=== PATIENT | female | born 1945 | race Caucasian/White ===

== ENCOUNTER 2018-03-14 17:16 | Observation (INO) ==
[2018-03-14 18:24] LABS: Basophils % 0.2 %; Eosinophils # 0.1 K/mcL (0.0-0.6); Eosinophils % 0.4 %; Hematocrit 36.8 % (35.3-44.9); Hemoglobin 11.9 g/dL (11.5-15.4); Immature Granulocytes % 0.3 % (0-4); Lymphocytes # 0.9 K/mcL (0.6-4.6); Mean Corpuscular HGB Conc 32.3 g/dL (31.6-35.5); Mean Corpuscular Hemoglobin 29.2 pg (28.0-33.3); Mean Corpuscular Volume 90.4 fL (83.0-100.0); Mean Platelet Volume 10.7 fL (9.4-12.4); Monocytes # 1.2 K/mcL (0.0-1.3); Monocytes % 9.2 %; Neutrophils # 10.9 K/mcL (1.6-8.9); Platelet Count 203 K/mcL (140-400); Red Blood Count 4.07 M/mcL (3.82-4.97); Red Cell Distribution Width 13.8 % (11.5-14.5); Segmented Neutrophils % 82.9 %
[2018-03-14 18:29] LABS: INR 1.1; Prothrombin Time 12.9 Seconds (9.4-12.1)
[2018-03-14 18:31] LABS: Activated Partial Thrombo Time 40.1 Seconds (26.0-36.0)
--- NOTE | 2018-03-14 18:31 | Emergency Department Note ---
Disposition Clinical Impression: Chest pain Qualifiers: Chest pain type: unspecified Qualified Code(s): R07.9 - Chest pain, unspecified Disposition: Admitted As Inpatient Condition: Good Referrals: Malcom Busby MD [Primary Care Provider] - Forms: ED Satisfaction Letter Time of Disposition: 19:44 General Adult HPI - General Chief complaint: ED Chest Pain Stated complaint: Chest Pain Time Seen by Provider: 03/14/18 17:27 Source: patient, family, EMS Limitations: no limitations Nursing Notes Reviewed: Yes Vital Signs Reviewed: Yes - History of Present Illness HPI Narrative: Chest pain in the center of her chest that radiates her neck began while at rest earlier today. Did have 4 baby aspirin and nitroglycerin glycerin by EMS to relieve the pain. Woke up with a headache that is relieved at this time. No visual changes. She states she has a hard time describing the pain. States it is not a burning sensation. Does have a history of acid reflux and states this does not feel the same. Pain Scale: 6 - Related Data Home Medications Medication Instructions Recorded Confirmed Aspirin Enteric Coated [Aspirin EC] 81 mg PO DAILY 03/14/18 03/14/18 Calcium Carbonate [Calcium] 600 mg PO DAILY 03/14/18 03/14/18 Losartan Potassium [Cozaar] 50 mg PO DAILY 03/14/18 03/14/18 Multivitamin [One Daily Essential] 1 tab PO DAILY 03/14/18 03/14/18 [place]-3/Dha/Epa/Fish Oil [Fish Oil 1 cap PO DAILY 03/14/18 03/14/18 1,000 mg Softgel] Pravastatin Sodium [Pravachol] 40 mg PO HS 03/14/18 03/14/18 Allergies Allergy/AdvReac Type Severity Reaction Status Date / Time No Known Allergies Allergy Verified 03/14/18 19:34 All systems ED: reviewed and negative except as stated. Constitutional: Denies: fever, chills Cardiovascular: Reports: chest pain. Denies: palpitations, syncope Respiratory: Reports: dyspnea. Denies: cough, sputum production Gastrointestinal: Denies: abdominal pain, nausea, vomiting, diarrhea, hematemesis, melena, hematochezia Musculoskeletal: Reports: neck pain (Chest pain that radiates up into her neck.) . Denies: back pain Neurological: Reports: headache (Relieved at this time.). Denies: weakness Past Medical History - Past Medical History Attestation: Yes The following information was validated with the patient. Source: patient Medical history: Reports: cancer, hyperlipidemia, hypertension, other Surgical history: Reports: non-contributory Psychiatric history: Reports: no psych history - Social History Smoking Status: Former smoker Smokeless Tobacco Status: No Alcohol use: Reports: none Drug use: Reports: none Physical Exam - General Limitations: no limitations General appearance: alert, in no apparent distress - Head Head exam: atraumatic, normocephalic, normal inspection - Eye Eye exam: Present: normal appearance, PERRL, EOMI - ENT ENT exam: normal exam, normal oropharynx, mucous membranes moist - Neck Neck exam: Present: normal inspection, full ROM, trachea midline - Chest Chest inspection: Present: normal inspection, symmetric chest wall rise - Respiratory Respiratory exam: Present: normal lung sounds bilaterally. Absent: respiratory distress, accessory muscle use - Cardiovascular Cardiovascular exam: Present: regular rate, normal rhythm, normal heart sounds - Abdominal Exam Abdominal exam: Present: soft, Non-Tender. Absent: tenderness, distention, guarding, rebound, rigidity, organomegaly, Fuchs's sign, Rovsing's sign, tenderness at McBurney's Point - Extremities Exam Extremities exam: Present: normal inspection, full ROM, normal capillary refill. Absent: tenderness, pedal edema - Neurological Exam Neurological exam: Present: alert, oriented X3 - Psychiatric Psychiatric exam: Present: normal affect, normal mood - Skin Skin exam: Present: warm, dry, intact, normal color Course Course Narrative: Female patient presenting to [facility] complaining of chest pain that began around noon today while she was at rest. States that the pain radiates up to her neck. does have associated shortness of breath. No recent illnesses. No fevers or chills. Does have a history of acid reflux and states this is not All same. She has a hard time describing the pain but states it is not a burning sensation. She states she has no cardiac history and has never had a cardiac workup before. There is a cardiac history in her family. She is not a smoker. On exam she is resting completely in bed. She did take 4 baby aspirin and nitroglycerin by EMS. She states the pain is on was completely relieved at this time. Patient resting comfortably in bed. Her chest x-ray is negative. Lab workup is normal. D-dimer is negative. Troponin is negative. EKG shows no signs of acute ischemia. Patient does have a history of hyperlipidemia as well as hypertension. We will admit patient to the hospital for further cardiac evaluation at this time. - Consultations Consultation #1: Dr Simmons accepted Pt in stable condition. Time: 19:41 Vital Signs Temperature 99 F 03/14/18 17:24 Pulse Rate 92 03/14/18 17:24 Respiratory Rate 16 03/14/18 17:24 Blood Pressure 126/75 03/14/18 17:24 O2 Sat by Pulse Oximetry 96 03/14/18 17:24 Temperature 99 F 03/14/18 17:24 Pulse Rate 95 03/14/18 19:24 Respiratory Rate 16 03/14/18 19:24 Blood Pressure 138/89 03/14/18 19:24 O2 Sat by Pulse Oximetry 97 03/14/18 19:24 Oxygen Delivery Oxygen Delivery Room Air Medical Decision Making - Medical Records Medical records reviewed: Yes I reviewed the patient's medical records. - Lab Data Lab results reviewed: Yes I reviewed the patient's lab results. Result diagrams: 03/14/18 18:10 03/14/18 18:10 Lab Results 03/14/18 03/14/18 03/14/18 Range/Units 18:10 18:10 18:10 WBC 13.1 H (4.3-11.1) K/mcL RBC 4.07 (3.82-4.97) M/mcL Hgb 11.9 (11.5-15.4) g/dL Hct 36.8 (35.3-44.9) % MCV 90.4 (83.0-100.0) fL MCH 29.2 (28.0-33.3) pg MCHC 32.3 (31.6-35.5) g/dL RDW 13.8 (11.5-14.5) % Plt Count 203 (140-400) K/mcL MPV 10.7 (9.4-12.4) fL Immature Gran % 0.3 (0-4) % Seg Neutrophils % 82.9 % Lymphocytes % 7.0 % Monocytes % 9.2 % Eosinophils % 0.4 % Basophils % 0.2 % Neutrophils # 10.9 H (1.6-8.9) K/mcL Lymphocytes # 0.9 (0.6-4.6) K/mcL Monocytes # 1.2 (0.0-1.3) K/mcL Eosinophils # 0.1 (0.0-0.6) K/mcL Basophils # 0.0 (0.0-0.2) K/mcL PT 12.9 H (9.4-12.1) Seconds INR 1.1 APTT 40.1 H (26.0-36.0) Seconds D-Dimer 392 (0-500) ng/mLFEU Sodium (136-145) mEq/L Potassium (3.5-5.1) mEq/L Chloride (98-107) mEq/L Carbon Dioxide (23-29) mEq/L BUN (8-23) mg/dL Creatinine (0.60-1.20) mg/dL Est GFR ( Amer) (> 60) Est GFR (Non-Af Amer) (> 60) BUN/Creatinine Ratio (6-26) Glucose (70-105) mg/dL Calculated Osmolality (280-300) Calcium (8.6-10.3) mg/dL Troponin I (< 0.04) ng/mL B-Natriuretic Peptide 133 H (Less than 100) pg/mL 03/14/18 Range/Units 18:10 WBC (4.3-11.1) K/mcL RBC (3.82-4.97) M/mcL Hgb (11.5-15.4) g/dL Hct (35.3-44.9) % MCV (83.0-100.0) fL MCH (28.0-33.3) pg MCHC (31.6-35.5) g/dL RDW (11.5-14.5) % Plt Count (140-400) K/mcL MPV (9.4-12.4) fL Immature Gran % (0-4) % Seg Neutrophils % % Lymphocytes % % Monocytes % % Eosinophils % % Basophils % % Neutrophils # (1.6-8.9) K/mcL Lymphocytes # (0.6-4.6) K/mcL Monocytes # (0.0-1.3) K/mcL Eosinophils # (0.0-0.6) K/mcL Basophils # (0.0-0.2) K/mcL PT (9.4-12.1) Seconds INR APTT (26.0-36.0) Seconds D-Dimer (0-500) ng/mLFEU Sodium 138 (136-145) mEq/L Potassium 4.0 (3.5-5.1) mEq/L Chloride 106 (98-107) mEq/L Carbon Dioxide 24 (23-29) mEq/L BUN 12 (8-23) mg/dL Creatinine 0.70 (0.60-1.20) mg/dL Est GFR ( Amer) > 60 (> 60) Est GFR (Non-Af Amer) > 60 (> 60) BUN/Creatinine Ratio 17 (6-26) Glucose 118 H (70-105) mg/dL Calculated Osmolality 287 (280-300) Calcium 8.8 (8.6-10.3) mg/dL Troponin I < 0.03 (< 0.04) ng/mL B-Natriuretic Peptide (Less than 100) pg/mL - Radiology Data Radiology results reviewed: Yes I reviewed the patient's radiology results. Chest X-Ray 03/14/18 17:40 IMPRESSION: 1. No acute cardiopulmonary process. 2. Bibasilar atelectasis. D/ / Jordon Espinosa / Jordon Espinosa Interpreting Provider: Jordon Espinosa - EKG Data EKG #1 EKG attestation: Yes I reviewed and interpreted this EKG. EKG results narrative: Normal sinus rhythm at a rate 88. SD interval is 134. QRS duration is 88. QT is 361. QTC is 437. No signs of ischemia.
[2018-03-14 18:42] LABS: BUN/Creatinine Ratio 17 (6-26); Blood Urea Nitrogen 12 mg/dL (8-23); Calcium 8.8 mg/dL (8.6-10.3); Carbon Dioxide 24 mEq/L (23-29); Chloride 106 mEq/L (98-107); Glucose 118 mg/dL (70-105); Osmolality,Calculated 287 (280-300); Sodium 138 mEq/L (136-145); Troponin I < 0.03 ng/mL (< 0.04); eGFR For Non-African Americans > 60 (> 60)
--- NOTE | 2018-03-14 19:36 | Emergency Department Note ---
Disposition Clinical Impression: Chest pain Disposition: Admitted As Inpatient Condition: Good Chest Pain HPI - General Chief Complaint: ED Chest Pain Stated Complaint: Chest Pain Time Seen by Provider: 03/14/18 17:27 Source: patient, family, EMS Limitations: no limitations Vital Signs Reviewed: Yes Nursing Notes Reviewed: Yes - History of Present Illness Severity scale (1-10): 3 - Related Data Home Medications Medication Instructions Recorded Confirmed Aspirin Enteric Coated [Aspirin EC] 81 mg PO DAILY 03/14/18 03/14/18 Calcium Carbonate [Calcium] 600 mg PO DAILY 03/14/18 03/14/18 Losartan Potassium [Cozaar] 50 mg PO DAILY 03/14/18 03/14/18 Multivitamin [One Daily Essential] 1 tab PO DAILY 03/14/18 03/14/18 [place]-3/Dha/Epa/Fish Oil [Fish Oil 1 cap PO DAILY 03/14/18 03/14/18 1,000 mg Softgel] Pravastatin Sodium [Pravachol] 40 mg PO HS 03/14/18 03/14/18 Allergies Allergy/AdvReac Type Severity Reaction Status Date / Time No Known Allergies Allergy Verified 03/14/18 19:34 Chest Pain PMH - Past Medical History Medical history: Reports: cancer, hyperlipidemia, hypertension, other Surgical history: Reports: non-contributory Psychiatric history: Reports: no psych history - Social History Smoking Status: Former smoker Alcohol use: Reports: none Drug use: Reports: none Physical Exam - General Limitations: no limitations General appearance: alert, in no apparent distress Course Vital Signs Temperature 99 F 03/14/18 17:24 Pulse Rate 92 03/14/18 17:24 Respiratory Rate 16 03/14/18 17:24 Blood Pressure 126/75 03/14/18 17:24 O2 Sat by Pulse Oximetry 96 03/14/18 17:24 Temperature 98.3 F 03/15/18 07:03 Pulse Rate 87 03/15/18 07:03 Respiratory Rate 16 03/15/18 07:03 Blood Pressure 101/71 03/15/18 07:03 O2 Sat by Pulse Oximetry 92 03/15/18 07:03 Oxygen Delivery Oxygen Delivery Room Air Chest Pain - Lab Data Result diagrams: 03/15/18 00:36 03/15/18 00:36 Lab Results 03/14/18 03/14/18 03/14/18 Range/Units 18:10 18:10 18:10 WBC 13.1 H (4.3-11.1) K/mcL RBC 4.07 (3.82-4.97) M/mcL Hgb 11.9 (11.5-15.4) g/dL Hct 36.8 (35.3-44.9) % MCV 90.4 (83.0-100.0) fL MCH 29.2 (28.0-33.3) pg MCHC 32.3 (31.6-35.5) g/dL RDW 13.8 (11.5-14.5) % Plt Count 203 (140-400) K/mcL MPV 10.7 (9.4-12.4) fL Immature Gran % 0.3 (0-4) % Seg Neutrophils % 82.9 % Lymphocytes % 7.0 % Monocytes % 9.2 % Eosinophils % 0.4 % Basophils % 0.2 % Neutrophils # 10.9 H (1.6-8.9) K/mcL Lymphocytes # 0.9 (0.6-4.6) K/mcL Monocytes # 1.2 (0.0-1.3) K/mcL Eosinophils # 0.1 (0.0-0.6) K/mcL Basophils # 0.0 (0.0-0.2) K/mcL PT 12.9 H (9.4-12.1) Seconds INR 1.1 APTT 40.1 H (26.0-36.0) Seconds D-Dimer 392 (0-500) ng/mLFEU Sodium (136-145) mEq/L Potassium (3.5-5.1) mEq/L Chloride (98-107) mEq/L Carbon Dioxide (23-29) mEq/L BUN (8-23) mg/dL Creatinine (0.60-1.20) mg/dL Est GFR ( Amer) (> 60) Est GFR (Non-Af Amer) (> 60) BUN/Creatinine Ratio (6-26) Glucose (70-105) mg/dL Calculated Osmolality (280-300) Calcium (8.6-10.3) mg/dL Troponin I (< 0.04) ng/mL B-Natriuretic Peptide 133 H (Less than 100) pg/mL 03/14/18 Range/Units 18:10 WBC (4.3-11.1) K/mcL RBC (3.82-4.97) M/mcL Hgb (11.5-15.4) g/dL Hct (35.3-44.9) % MCV (83.0-100.0) fL MCH (28.0-33.3) pg MCHC (31.6-35.5) g/dL RDW (11.5-14.5) % Plt Count (140-400) K/mcL MPV (9.4-12.4) fL Immature Gran % (0-4) % Seg Neutrophils % % Lymphocytes % % Monocytes % % Eosinophils % % Basophils % % Neutrophils # (1.6-8.9) K/mcL Lymphocytes # (0.6-4.6) K/mcL Monocytes # (0.0-1.3) K/mcL Eosinophils # (0.0-0.6) K/mcL Basophils # (0.0-0.2) K/mcL PT (9.4-12.1) Seconds INR APTT (26.0-36.0) Seconds D-Dimer (0-500) ng/mLFEU Sodium 138 (136-145) mEq/L Potassium 4.0 (3.5-5.1) mEq/L Chloride 106 (98-107) mEq/L Carbon Dioxide 24 (23-29) mEq/L BUN 12 (8-23) mg/dL Creatinine 0.70 (0.60-1.20) mg/dL Est GFR ( Amer) > 60 (> 60) Est GFR (Non-Af Amer) > 60 (> 60) BUN/Creatinine Ratio 17 (6-26) Glucose 118 H (70-105) mg/dL Calculated Osmolality 287 (280-300) Calcium 8.8 (8.6-10.3) mg/dL Troponin I < 0.03 (< 0.04) ng/mL B-Natriuretic Peptide (Less than 100) pg/mL Attestation Statement - Attestation Attestation: I, Presley Chapman, examined this patient and my medical decision-making was reviewed with the SYNT[employer]ENT SPINNER/PA/Advanced Practice Nurse/Resident Physician. I agree with the documented findings, disposition and treatment plan as described except to the extent set forth below. 72-year-old female presents emergency Department with concerns of acute onset chest pain. Patient states pain is in her epigastrium and central chest and radiates to her left-sided neck. Patient denies history of similar symptoms in the past. Patient denies near syncopal symptoms. Denies vomiting or palpitations. Patient has cardiac risk factors of tobacco abuse, hypertension, hyperlipidemia and family history of heart disease. Initial troponin negative. EKG showed normal sinus rhythm with a rate of 88 without evidence of STEMI. Chest x-ray negative. D-dimer negative. Patient is comfortable with the plan for admission to hospital for further care and evaluation.
[2018-03-14] MEDS ORDERED: Pantoprazole 40 MG VIAL IVP ONE (21:39)
[2018-03-14] MEDS: Nitroglycerin 0.4 MG TAB.SUBL SL PRN (21:50)
[2018-03-14] MEDS ORDERED: Naloxone 0.4 MG/ML INJ IVP PRN (23:02)
[2018-03-14] MEDS ORDERED: Acetaminophen 325 MG TABLET PO PRN (23:03)
[2018-03-15 01:08] LABS: Mean Corpuscular HGB Conc 32.4 g/dL (31.6-35.5); Mean Corpuscular Volume 89.7 fL (83.0-100.0); Mean Platelet Volume 11.2 fL (9.4-12.4); Platelet Count 196 K/mcL (140-400); Red Blood Count 3.79 M/mcL (3.82-4.97)
[2018-03-15 01:27] LABS: BUN/Creatinine Ratio 19 (6-26); Blood Urea Nitrogen 12 mg/dL (8-23); Calcium 8.7 mg/dL (8.6-10.3); Carbon Dioxide 25 mEq/L (23-29); Chloride 106 mEq/L (98-107); Glucose 116 mg/dL (70-105); Osmolality,Calculated 287 (280-300); Potassium 4.2 mEq/L (3.5-5.1); Sodium 138 mEq/L (136-145); eGFR For Non-African Americans > 60 (> 60)
[2018-03-15] MEDS: Nitroglycerin 0.4 MG TAB.SUBL SL PRN ×2 (05:52→05:57)
[2018-03-15] MEDS ORDERED: *HR* Heparin 5,000 UNIT/ML VIAL SQ SCH (06:00)
--- NOTE | 2018-03-15 07:34 | Internal Med History&Physical ---
Date of Encounter: 03/14/18 Time of Encounter: 21:40 Internal Medicine - H&P: HPI Chief complaint: Chest Pain Admitted From: Home Plans for Post Hospital Care: Home History of present illness: Ms. Baeza is a 72 year old female Patient presented to the ER after experiencing chest pain that started while at rest the day of admission, with radiation up to her neck. When she woke up in the morning she stated that she had a headache and her ears hurt. After her morning coffee things got better. Then in the afternoon the pain started, and did not feel like heartburn. She never has had pain like that before. In the ambulance the patient was given 4 baby aspirin and nitroglycerin which helped. She has no previous cardiac history. In the ER cbc and BMP were within normal limits. Troponins were undetectable, BNP was 133 and D-dimer was 392. Chest x-ray was negative as well. She was admitted for further workup for her chest pain. Upon my assessment, patient states that she still has some chest pain, but it is improved. She denies shortness of breath, nausea, vomiting, constipation and diarrhea. Se denies abdominal pain, arm pain and vision changes. Past Med Surg Social Fam HX - Past Medical History Medical history: cancer, hyperlipidemia, hypertension, other Additional medical history: uterine cancer Psychiatric history: no psych history - Past Surgical History Surgical History: non-contributory Additional surgical history: Uterus removed - Social History Smoking Status: Former smoker Smokeless Tobacco Status: No Alcohol use: rarely Drug use: none - Family History Mother Hx Family Cardiac Disorders: Yes Internal Medicine - H&P: Meds Aspirin Enteric Coated [Aspirin EC] 81 mg PO DAILY 03/14/18 [History] Calcium Carbonate [Calcium] 600 mg PO DAILY 03/14/18 [History] Losartan Potassium [Cozaar] 50 mg PO DAILY 03/14/18 [History] Multivitamin [One Daily Essential] 1 tab PO DAILY 03/14/18 [History] [place]-3/Dha/Epa/Fish Oil [Fish Oil 1,000 mg Softgel] 1 cap PO DAILY 03/14/18 [ History] Pravastatin Sodium [Pravachol] 40 mg PO HS 03/14/18 [History] 3 Allergy/AdvReac Type Severity Reaction Status Date / Time No Known Allergies Allergy Verified 03/14/18 19:34 All Systems PM: A 10-system review of systems was performed and is negative for pertinent findings except as documented above in the HPI. - Constitutional Vitals: Temp Pulse Resp BP Pulse Ox 98.3 F 87 16 101/71 92 03/15/18 07:03 03/15/18 07:03 03/15/18 07:03 03/15/18 07:03 03/15/18 07:03 General appearance: Present: cooperative, A&O X 3, pleasant, no acute distress, answers questions appropriately - Head Head exam: Present: normal inspection - Eye Eye exam: Present: EOMI, normal appearance - Respiratory Respiratory exam: Present: CTAB. Absent: chest wall tenderness, wheezes - Cardiovascular Cardiovascular exam: Present: RRR. Absent: diastolic murmur, systolic murmur - GI/Abdominal GI/Abdominal exam: Present: normal bowel sounds, soft. Absent: tenderness - Extremities Exam Extremities exam: Present: tenderness. Absent: calf tenderness, pedal edema, warm, radial pulses palpable and symmetrical - Neurological Exam Neurological exam: Present: no focal deficits, strengths equal and symetr throughout. Absent: motor sensory deficit, facial droop, speech deficit - Skin Skin exam: Present: normal color, warm Internal Med - H&P Results - Labs CBC & Chem 7: 03/15/18 00:36 03/15/18 00:36 Labs: Short CBC 03/15/18 Range/Units 00:36 WBC 10.8 (4.3-11.1) K/mcL Hgb 11.0 L (11.5-15.4) g/dL Hct 34.0 L (35.3-44.9) % Plt Count 196 (140-400) K/mcL BMP 03/15/18 00:36 Sodium 138 Potassium 4.2 Chloride 106 Carbon Dioxide 25 BUN 12 Creatinine 0.64 Glucose 116 H Calcium 8.7 Cardiac Enzymes 03/15/18 03/15/18 Range/Units 00:36 05:39 Troponin I < 0.03 < 0.03 (< 0.04) ng/mL - Assessment and plan (1) Chest pain Current Visit: Yes Status: Acute Assessment and plan: Troponins negative, EKG showed no ischemic changes and chest x-ray negative. Gave patient additional doses of nitroglycerin and a PPI in the evening as she is still experiencing some chest pain. After her third nitroglycerin, patient' s chest pain improved to a 2 out of 10. Continue to monitor troponins Cardiac monitoring overnight Consider stress test or echocardiogram Consider cardiology consult in the morning Qualifiers: Chest pain type: unspecified Qualified Code(s): R07.9 - Chest pain, unspecified (2) Headache Current Visit: Yes Status: Acute Assessment and plan: Resolved at this point, continue to monitor with additional doses of nitroglycerin Qualifiers: Qualified Code(s): R51 - Headache (3) Hypertension Current Visit: Yes Status: Acute Assessment and plan: Patient takes losartan at home. Currently blood pressure is controlled. Continue to monitor Qualifiers: Qualified Code(s): I10 - Essential (primary) hypertension - Time Spent With Patient Total time spent is greater than 50% in coordination of care (as documented) at patient's floor/unit and/or counseling patient: Greater than 35 minutes
[2018-03-15] MEDS ORDERED: Aspirin Enteric Coated 81 MG Tablet PO SCH (09:00)
[2018-03-15] MEDS ORDERED: Regadenoson 0.4 MG/5 ML SYRINGE IVP ONE (11:08)
[2018-03-15 15:42] VITALS: BP 119/78
--- NOTE | 2018-03-15 16:00 | Discharge Summary ---
<Mil Caro - Last Filed: 03/15/18 16:26> - NOTES TO OUTPATIENT PROVIDER Notes to Outpatient Provider: negative chest pain work up, negative troponin and pharmacologic stress test. Patient already on medical management with aspirin, ARB and statin. Orders not resulted at time of discharge: Pending orders 03/15/18 08:16 NM jose perf SPECT multi [NM] Routine 03/15/18 15:33 EV echocardiogram Routine Date of Encounter: 03/15/18 Time of Encounter: 10:00 - Discharge Diagnosis (1) Chest pain Priority: Primary Status: Acute Qualifiers: Chest pain type: unspecified Qualified Code(s): R07.9 - Chest pain, unspecified (2) GERD (gastroesophageal reflux disease) Priority: Secondary Status: Acute Qualifiers: Qualified Code(s): K21.9 - Gastro-esophageal reflux disease without esophagitis (3) Hypertension Priority: Secondary Status: Acute Qualifiers: Qualified Code(s): I10 - Essential (primary) hypertension Hospital course: Ms. Baeza is a 72 year old female history of HTN, uterine cancer s/p hysterectomy , who was admitted 03/14 with chest pain. On morning of admission, patient developed headache and ear pain. She later developed chest pain radiating into her neck and jaw, which worsened with lying down and was unchanged with exertion. No shortness of breath. In the ED, troponins and EKG were negative. CXR showing bibasilar atelectasis. BNP elevated to 133, d-dimer within normal limits at 392. Her pain was relieved with nitroglycerin. Stress test was negative for ischemia. Given script for SL nitro. Discharge discussed with: patient, nurse - Time Spent with Patient Total time spent providing and/or coordinating discharge services: Greater than 30 minutes - Discharge Medications Prescriptions: Nitroglycerin 0.4 mg SL Q5MIN PRN #30 tab.subl PRN Reason: Chest Pain Home Medications: Aspirin Enteric Coated [Aspirin EC] 81 mg PO DAILY 03/14/18 [History] Calcium Carbonate [Calcium] 600 mg PO DAILY 03/14/18 [History] Losartan Potassium [Cozaar] 50 mg PO DAILY 03/14/18 [History] Multivitamin [One Daily Essential] 1 tab PO DAILY 03/14/18 [History] [place]-3/Dha/Epa/Fish Oil [Fish Oil 1,000 mg Softgel] 1 cap PO DAILY 03/14/18 [ History] Pravastatin Sodium [Pravachol] 40 mg PO HS 03/14/18 [History] Nitroglycerin 0.4 mg SL Q5MIN PRN #30 tab.subl 03/15/18 [Rx] Allergies/Adverse Reactions: 3 Allergy/AdvReac Type Severity Reaction Status Date / Time No Known Allergies Allergy Verified 03/14/18 19:34 Date of admission: 03/14/18 20:37 Primary care physician: Malcom Busby MD Discharging clinician: Mil Caro Anticipated date of discharge: 03/15/18 - Constitutional Vitals: Temp Pulse Resp BP Pulse Ox 98.2 F 86 16 119/78 95 03/15/18 15:39 03/15/18 15:39 03/15/18 15:39 03/15/18 15:39 03/15/18 15:39 General appearance: Present: cooperative, pleasant, no acute distress, answers questions appropriately - Head Head exam: Present: atraumatic, normocephalic - Eye Eye exam: Present: PERRL, conjuntiva pink, sclera anicteric Pupils: Present: PERRL - Neck Neck exam general surgery: Present: supple, trachea midline. Absent: lymphadenopathy - Respiratory Respiratory exam: Present: CTAB. Absent: accessory muscle use, rales, rhonchi, wheezes - Cardiovascular Cardiovascular exam: Present: RRR, +S1, +S2. Absent: diastolic murmur, gallop, rubs, systolic murmur - GI/Abdominal GI/Abdominal exam: Present: normal bowel sounds, soft, no peritoneal signs. Absent: distended, tenderness - Extremities Exam Extremities exam: Present: warm, radial pulses palpable and symmetrical. Absent : calf tenderness, cyanotic, pedal edema - Neurological Exam Neurological exam: Present: alert, no focal deficits. Absent: pronater drift, facial droop, speech deficit - Skin Skin exam: Present: dry, intact - Patient Status Disposition: Home, Self-Care Condition: Good Functional capacity at discharge: independent ambulation Overall status at discharge: patient is progressing back to baseline - Discharge Instructions Instructions: Chest Pain (DC), Chest Pain (GEN) Follow Up With: Nan Houston MD [Partnered Physician] - 03/20/18 1:45 pm (Hospital follow up) Additional Instructions: Please see your PCP within 1 week of discharge. - Diet and Activity Activity: increase activity as tolerated Diet: advance to your usual diet <Reba Dover - Last Filed: 03/15/18 19:00> Orders not resulted at time of discharge: Pending orders 03/15/18 08:16 NM jose perf SPECT multi [NM] Routine Date of Encounter: 03/15/18 Hospital course: Ms. Baeza is a 72 year old female - Time Spent with Patient Total time spent providing and/or coordinating discharge services: Date of admission: 03/14/18 20:37 Primary care physician: Malcom Busby MD - Constitutional Vitals: Temp Pulse Resp BP Pulse Ox 98.2 F 86 16 119/78 95 03/15/18 15:39 03/15/18 15:39 03/15/18 15:39 03/15/18 15:39 03/15/18 15:39 - Attending Attestation I examined this patient and my medical decision-making was reviewed with the Resident Physician Dr. Sebastian. I agree with the documented findings, disposition and treatment plan as described except to the extent set forth below.
--- NOTE | 2018-03-16 13:58 | Electrocardiograph Report ---
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
== END 2018-03-15 16:56 | disposition home or self-care (01) ==
LOC: 3BNU 17:16 → EMEROOARM 17:16 → 3BNU 20:58
PROVIDERS: ADMIT Family Medicine; ATTEND Family Medicine